=== PATIENT | male | born 1985 | race Caucasian/White ===

== ENCOUNTER 2018-01-10 17:25 | Emergency (ER) | payer SELFPAY ==
[2018-01-10 17:27] VITALS: BP 147/84; PULSE 84; RESP 14; TEMP 37.1; O2SAT 97; BMI 20.6
--- NOTE | 2018-01-10 17:42 | NURSING ---
NO OLD EKGS
--- NOTE | 2018-01-10 17:48 | EKG12_ITS ---
Test Reason : CP, HAND CRAMP Blood Pressure : / mmHG Vent. Rate : 071 BPM Atrial Rate : 071 BPM P-R Int : 162 ms QRS Dur : 100 ms QT Int : 374 ms P-R-T Axes : 036 078 055 degrees QTc Int : 406 ms Normal sinus rhythm Normal ECG Confirmed by ELEANOR SALDANA, UMESH ([id number]), web editor ANNELIESE SIBLEY ([id number] on 01/12/2018 2:13:57 PM Referred By: PENNY/[place] Confirmed By:UMESH WEBSTER MD
--- NOTE | 2018-01-10 17:50 | RAD_ITS ---
STUDY: X-RAY CHEST REASON FOR EXAM: Male, 32 years old. Chest pain TECHNIQUE: Frontal and lateral views of the chest. COMPARISON: None. FINDINGS: The lungs are clear and expanded. There is no demonstrated pleural abnormality. Normal size heart. Normal mediastinum and darleen. Normal visualized pulmonary arteries. Normal visualized aortic arch and descending thoracic aorta. Normal visualized thoracic spine. Normal visualized ribs, clavicles, and shoulders. There is no demonstrated abnormality of the visualized soft tissue structures of the upper abdomen. RAD/Chest PA and Lateral IMPRESSION: Normal x-ray examination of the chest. Electronically Signed: Josse Jacobs MD at 19:52 EDT , Service support ,
[2018-01-10 18:01] LABS: Absolute Lymphocyte Count 2.38 X10^3/ul (0.83-4.51); Absolute Neutrophil Count 4.2 X10^3/uL (2.0-7.7); Basophil# 0.01 X10^3/uL; Basophil% 0.1 % (0-1); Eosinophils% 1.4 % (0-5); Hematocrit 44.1 % (40-54); Hemoglobin 14.3 g/dl (13.0-16.5); Lymphocyte # 2.38 X10^3/ul (4.0); Lymphocyte % 32.7 % (19-41); Mean Corp Hgb Conc 32.4 g/gl (32-36); Mean Corpuscular Hgb 28.4 pg (27.0-32.0); Mean Corpuscular Volume 87.7 fL (80-94); Mean Platelet Vol. 10.9 fl (6.2-12.0); Monocyte# 0.55 X10^3/uL; Monocyte% 7.6 % (0-10); Neutrophil # 4.23 X10^3/uL (2.7-7.7); Neutrophil % 58.1 % (47-70); Platelet Count 231 K/mm3 (150-450); RBC Distribution Width CV 12.8 % (11.6-14.6); RBC Distribution Width SD 41.4 fl (35.1-43.9); Red Blood Count 5.03 M/mm3 (4.6-6.2); White Blood Count 7.3 K/mm3 (4.4-11.0)
[2018-01-10 18:02] LABS: POSITIVE COUNT NO; POSITIVE DIFFERENTIAL NO; POSITIVE MORPHOLOGY NO
[2018-01-10 18:17] LABS: Anion Gap 6 (5-15); BUN 10 mg/dL (7-18); BUN/Creat Ratio 11.9 RATIO (10-20); Calcium,Total 8.9 mg/dL (8.5-10.1); Chloride 104 mmol/L (98-107); Creatinine, Serum 0.84 mg/dL (0.70-1.30); EST Glomerular Filtration Rate 112 mL/min (>60); Est Glom Filt Rate - Afr Amer 136 mL/min (>60); Glucose 87 mg/dL (74-106); Potassium 3.8 mmol/L (3.5-5.1); Sodium Level 138 mmol/L (136-145)
--- NOTE | 2018-01-10 18:21 | ED.VISSUMM ---
- ER Visit Summary Date of Service: 01/10/18 Chief Complaint: Chest pain History of Present Illness: The patient is a 32 M who states that since he was 18 years old he would wake with a chest pressure in the mornings. He states it feels like when he swung down to the bottom of the swimming pool and feel the pressure in her chest and then come up to the surface and take a breath. He is a longtime smoker recently decreased the amount that he is smoking but is now been increasing how much he is smoking up to a pack a day. He states he has been under a lot of stress at work and in his personal life. At times he feels his hands tingling. He initially describes the hands is hurting but I asked him to describe that he is describes a tingling. Suicidal homicidal ideation. Physical Examination: Afebrile vital signs are stable Gen: Well-nourished well-developed Head: Normocephalic atraumatic Eyes: Perrl EOMI ENT: TMs clear no rhinorrhea moist mucous membranes Neck: Supple no lymphadenopathy no JVD nontender CVS: Regular rate rhythm no murmurs normal S1-S2 Respiratory: No distress clear to auscultation bilaterally chest nontender Abdomen: Soft nontender nondistended normal bowel sounds no masses Back: Nontender Extremity: Nontender no edema Skin: Normal color no rash Neuro: alert orientated ?3 CN II-XII intact normal strength sensation reflexes gait cerebellar Psych: The patient appears anxious and has a flat affect. Denies suicidal homicidal ideation Test Results: X-ray showed normal mediastinal silhouette. EKG sinus at a rate of 71. Basic labs including troponin are negative. Emergency Department Course and Treatment: The patient most likely has anxiety. He will be placed on hydroxyzine. He needs to establish primary care for further care of his anxiety. Impression: 1. Chest pain 2. Anxiety This note was generated with [employer] dictation software. It may contain incorrect words, spelling, and punctuation that were not noted in review of the chart prior to signing ED Disposition - Plan for ED Patient: Disposition: Home or Assisted Living Chief Complaint: Chest Other Instructions: ED Stress React Prescriptions: Hydroxyzine HCl 25 mg PO TID PRN PRN #20 tab PRN Reason: Anxiety Referrals: Ángela Gama MD [STAFF PHYSICIAN] - (Call to arrange follow-up.)
[2018-01-10 18:47] VITALS: BP 120/85; PULSE 66; RESP 18; O2SAT 98
== END 2018-01-10 18:48 | disposition home or self-care (01) ==
PROVIDERS: Emergency Provider Emergency Medicine
DX: R07.9 Chest pain, unspecified (principal); F41.9 Anxiety disorder, unspecified; F17.200 Nicotine dependence, unspecified, uncomplicated
CPT/HCPCS: 71046; 80048; 84484; 85025; 93005; 99284; A4216

== ENCOUNTER 2018-06-01 11:27 | Emergency (ER) | payer OTHER, SELFPAY ==
[2018-06-01 11:28] VITALS: BP 122/71; PULSE 94; RESP 17; TEMP 37.1; O2SAT 95; BMI 20.7
--- NOTE | 2018-06-01 11:52 | ED.VISSUMM ---
- ER Visit Summary Date of Service: 06/01/18 Chief Complaint: Throat pain History of Present Illness: The patient is a 32 M with a sore throat for the last 2 days. Worse with eating, talking, and swallowing. Associated with sinus pressure and cold sweats. He was concerned for strep throat. No cough. No fevers. No pain with moving his neck. Physical Examination: Afebrile and vital signs unremarkable. Patient appears nontoxic and in no acute distress. Oropharynx is erythematous with no sign of exudate or swelling. Good range of motion of his neck. No lymphadenopathy. Heart regular. No respiratory distress. Skin appears normal. Test Results: None performed Emergency Department Course and Treatment: After discussion with the patient's, he would like to be treated for strep throat. He has a penicillin allergy and was treated with clindamycin. He also received a dose of Decadron. Patient may use [id number] remedies for his symptoms. Return to work tomorrow. Return to the ER for any new or worsening issues. Treatment Plan: As above Disposition: Discharge Impression: 1. Acute pharyngitis This note was generated with [employer] software. It may contain incorrect words, spelling, and punctuation that were not noted in review of the chart prior to signing ED Disposition - Plan for ED Patient: Chief Complaint: Sore Throat Referrals: Care Physician,No Primary [Primary Care Provider] -
--- NOTE | 2018-06-01 11:54 | ED.DEP ---
ED Disposition - Plan for ED Patient: Chief Complaint: Sore Throat Instructions: ED Pharyngitis Viral Prescriptions: Clindamycin [Cleocin] 300 mg PO TID 10 Days #60 cap Referrals: Care Physician,No Primary [Primary Care Provider] -
[2018-06-01] MEDS: Clindamycin HCl 150 MG Capsule 300 MG PO (11:55)
== END 2018-06-01 12:18 | disposition home or self-care (01) ==
PROVIDERS: Emergency Provider Emergency Medicine
DX: J02.9 Acute pharyngitis, unspecified (principal); Z72.0 Tobacco use
CPT/HCPCS: 99283

== ENCOUNTER 2018-08-01 00:01 | Emergency (ER) | payer MEDICAID, SELFPAY ==
[2018-08-01 00:02] VITALS: BP 121/72; PULSE 99; RESP 18; TEMP 38.4; O2SAT 97; BMI 21.6
--- NOTE | 2018-08-01 00:29 | RAD_ITS ---
STUDY: X-RAY CHEST REASON FOR EXAM: Male, 32 years old. Cough, generalized illness. TECHNIQUE: PA and lateral chest. COMPARISON: January 10, 2018. FINDINGS: The lungs are clear and expanded. There is no demonstrated pleural abnormality. Normal size heart. Normal mediastinum and darleen. Normal visualized pulmonary arteries. Normal visualized aortic arch and descending thoracic aorta. Normal visualized thoracic spine. Normal visualized ribs, clavicles, and shoulders. There is no demonstrated abnormality of the visualized soft tissue structures of the upper abdomen. RAD/Chest PA and Lateral IMPRESSION: Normal x-ray examination of the chest. Electronically Signed: Yvon Cabrera MD at 1:24 EST , Service support ,
--- NOTE | 2018-08-01 00:29 | ED.VISSUMM ---
- ER Visit Summary Date of Service: 08/01/18 Chief Complaint: [] Cough fever or flulike illness History of Present Illness: The patient is a 32 M cough intermittent fevers flulike illness for the last 4 days. Gradual onset. He has had nasal congestion. Not bring anything up. No flu shot. Feels weak. Positive sick contacts. State a couple days ago his temperature was 106. He has been using TheraFlu but has not taken anything since Wednesday. Physical Examination: [] Vital signs reviewed. Temperature 101. General: Well-nourished well-developed Head: Normocephalic atraumatic Eyes: Pupils equal round and reactive to light extraocular movements intact ENT: TMs clear no hemotympanum no trauma Neck: Nontender full range of motion Cardiovascular: Regular rate rhythm no murmurs normal S1-S2 Respiratory: No distress clear to auscultation bilaterally chest nontender Abdomen: Soft nontender nondistended normal bowel sounds no masses Back: Nontender no CVA tenderness Extremities: Nontender active range of motion ?4 extremities no trauma Skin: Normal color no trauma Neuro alert oriented cranial nerves II through XII intact normal strength sensation reflexes Test Results: [] Emergency Department Course and Treatment: [] Given IV fluids, Toradol, Tylenol. Chest x-ray obtained chest x-ray negative. At this time I think the patient has a flulike illness. Not a candidate for Tamiflu therefore I will not check a flu test. Instructed on symptomatic therapy. I do not feel he needs antibiotics. We will follow-up as an outpatient. Treatment Plan: [] Disposition: [] Impression: [] Influenza-like illness This note was generated with [employer] dictation software. It may contain incorrect words, spelling, and punctuation that were not noted in review of the chart prior to signing ED Disposition - Plan for ED Patient: Chief Complaint: General Illness Referrals: Care Physician,No Primary [Primary Care Provider] -
[2018-08-01] MEDS: Acetaminophen 500 MG Tablet 1000 MG PO (00:41)
[2018-08-01] MEDS: 0.9% Normal Saline 1,000 ML 1000 ML IV (00:41)
[2018-08-01] MEDS: Ketorolac 30 MG/ML Syringe IV (00:41)
--- NOTE | 2018-08-01 01:32 | ED.DEP ---
ED Disposition - Plan for ED Patient: Disposition: Home or Assisted Living Chief Complaint: General Illness Instructions: ED Flu Referrals: Care Physician,No Primary [Primary Care Provider] - Kurt Rodriguez DO [NON CLINICAL AFFILIATE] -
[2018-08-01 01:42] VITALS: BP 104/66; PULSE 87; RESP 16; O2SAT 92
== END 2018-08-01 01:45 | disposition home or self-care (01) ==
PROVIDERS: Emergency Provider Emergency Medicine
DX: J11.1 Influenza due to unidentified influenza virus with other respiratory manifestations (principal)
CPT/HCPCS: 71046; 96361; 96374; 99284; J7030

== ENCOUNTER 2019-09-16 16:09 | Emergency (ER) | payer MEDICAID, SELFPAY ==
[2019-09-16 16:10] VITALS: BP 111/71; PULSE 102; RESP 14; TEMP 36.8; O2SAT 96; BMI 25.4
--- NOTE | 2019-09-16 16:30 | RAD_ITS ---
STUDY: X-RAY CHEST REASON FOR EXAM: Male, 33 years old. COUGH TECHNIQUE: PA and lateral views of the chest. COMPARISON: 08/01/2018 FINDINGS: The lungs are clear and expanded. There is no demonstrated pleural abnormality. Normal size heart. Normal mediastinum and darleen. Normal visualized pulmonary arteries. Normal visualized aortic arch and descending thoracic aorta. Normal visualized thoracic spine. Normal visualized ribs, clavicles, and shoulders. There is no demonstrated abnormality of the visualized soft tissue structures of the upper abdomen. RAD/Chest PA and Lateral IMPRESSION: No acute pulmonary process Electronically Signed: Dean Ibrahim MD at 16:44 EST , Service support ,
--- NOTE | 2019-09-16 16:52 | ED.VIS.GEN ---
History of Present Illness Chief Complaint: Cough Informant: Patient Onset: Today Narrative: Patient presents the emergency department with a cough. He has been coughing for about 1 week. He is a smoker but states he is not smoking as much because of the cough. He has been having intermittent shortness of breath particularly upon waking from sleep. He reports subjective fever believes it broke as he got to the hospital. Minimal phlegm. Some rhinorrhea nor sore throat. He denies history of asthma or known lung conditions. Past Medical History - Allergies and Home Meds Allergies/Adverse Reactions: Allergies Penicillins Allergy (Verified 09/16/19 16:15) Anaphylaxis Latex, Natural Rubber Adverse Reaction (Verified 09/16/19 16:15) Rash Primary Care Physician: Care Physician,No Primary [Primary Care Provider] - Smoking Status: Current every day smoker Review of Systems General: Reports: Fever. Denies: Chills, Sweats Eyes: Denies: Visual changes - bilaterally, Diplopia ENT: Reports: Rhinorrhea. Denies: Sore throat Cardiovascular: Denies: Chest pain, Palpitations Respiratory: Reports: Cough, Sputum. Denies: Dyspnea, Dyspnea on exertion Gastrointestinal: Denies: Abdominal pain, Nausea, Vomiting, Diarrhea, Melena, Hematochezia Genitourinary: Denies: Dysuria, Hematuria, Frequency Musculoskeletal: Denies: Back pain, Extremity Pain Skin: Denies: Rash, Wounds Neurological: Denies: Headache, Weakness, Numbness Physical Exam Vital Signs/Narrative: Vital Signs Temp Pulse Resp BP Pulse Ox 09/16/19 16:10 98.3 F 102 H 14 111/71 96 Inital Vital Signs reviewed: Yes General: Well nourished, Well developed, No Acute Distress Head: Normocephalic, Atraumatic Eyes: Perrl, EOMI ENT: Moist mucous membranes, Nasal congestion Neck: Supple, Nontender Cardiovascular: Regular rate, Regular rhythm, No murmurs Respiratory: No distress, CTA bilaterally, Chest nontender Abdomen: Soft, Nontender, Nondistended, Normal bowel sounds Back: Nontender, Normal Inspection Extremities: Nontender, No edema Skin: Normal color, No rash Neurological: Alert, Oriented x3, Cranial nerves II-XII grossly intact, Normal Strength, Normal Sensation Psychological: Normal affect, Normal Mood Diagnostic/Tx/Re-eval Chest X-Ray - ED: 2 View, Read by ED Physician, Read by Radiologist No obvious infiltrate on chest x-ray - Medical Decision Making Chest x-ray is negative. I will write for the patient to albuterol MDI. At this point this is most likely a viral illness. Follow-up with primary care ED Disposition - Plan for ED Patient: Disposition: Home or Assisted Living Instructions: BRONCHITIS, No Antibiotic (Adult) Prescriptions: Albuterol Inhaler [Ventolin Hfa] 2 puff INHALATION Q4H PRN PRN #1 inhaler PRN Reason: Wheezing Prescription Printed Referrals: Rafael Morales MD [STAFF PHYSICIAN] - As Needed
== END 2019-09-16 17:05 | disposition home or self-care (01) ==
PROVIDERS: Emergency Provider Emergency Medicine
DX: R05 Cough (principal); F17.200 Nicotine dependence, unspecified, uncomplicated
CPT/HCPCS: 71046; 99282

== ENCOUNTER 2019-10-28 16:31 | Emergency (ER) | payer MEDICAID, SELFPAY ==
[2019-10-28 16:31] VITALS: BP 119/70; PULSE 92; RESP 16; TEMP 37; O2SAT 97; BMI 23.8
--- NOTE | 2019-10-28 17:25 | ED.VIS.GEN ---
History of Present Illness Chief Complaint: Dental Informant: Patient Onset: - - Chronic, worsened over the past several days Current Severity: Moderate Maximum Severity: Moderate Narrative: Patient presents with chronic dental pain. He states he knows he has multiple dental cavities and broken teeth. He will get flares of pain from time to time. Over the past 3 days this is worsened again. Patient does not remember the last time he was on an antibiotic. - Past Medical History (1) Anxiety Status: Chronic Past Medical History - Allergies and Home Meds Allergies/Adverse Reactions: Allergies Penicillins Allergy (Verified 10/28/19 16:35) Anaphylaxis Latex, Natural Rubber Adverse Reaction (Verified 10/28/19 16:35) Rash Primary Care Physician: Care Physician,No Primary [Primary Care Provider] - Lives: With Family Smoking Status: Current every day smoker Review of Systems General: Denies: Chills, Fever Eyes: Denies: Visual changes - bilaterally ENT: Reports: - - Right-sided dental pain. Denies: Bilateral ear pain Cardiovascular: Denies: Chest pain Respiratory: Denies: Dyspnea, Cough Gastrointestinal: Denies: Abdominal pain, Nausea, Vomiting, Diarrhea Genitourinary: Denies: Dysuria Skin: Denies: Rash Neurological: Denies: Headache Allergy: Denies: Uticaria Physical Exam Vital Signs/Narrative: Vital Signs Temp Pulse Resp BP Pulse Ox 10/28/19 16:31 98.6 F 92 16 119/70 97 Inital Vital Signs reviewed: Yes General: Well nourished, Well developed Head: Normocephalic ENT: Moist mucous membranes, - - Multiple right-sided dental caries and dental decay. Right mandibular molar region has gum edema noted. No focal abscess amenable to drainage. No sign of Andrew's angina. Posterior pharynx examination is normal. Patient is a strong voice and is tolerating secretions well. Neck: Supple Cardiovascular: Regular rate, Regular rhythm Respiratory: No distress, CTA bilaterally Abdomen: Soft, Nontender Back: Nontender Extremities: Nontender Neurological: Alert, Oriented x3 Psychological: Normal affect Diagnostic/Tx/Re-eval - Medical Decision Making Patient does have a penicillin allergy and will be treated with a course of clindamycin. He will continue Tylenol or ibuprofen at home. He is concerned about not having prescription coverage and will be given a good Rx card to help with the cost of his medication. He is also given a dental clinic referral list. ED Disposition - Plan for ED Patient: Disposition: Home or Assisted Living Diagnosis: Dental infection Instructions: Dental Pain Prescriptions: Clindamycin [Cleocin] 300 mg PO 4X/DAY #80 cap Transmission Status: Pending to [id number] [place] Additional Instructions: Dental list provided
[2019-10-28 17:38] VITALS: RESP 15
== END 2019-10-28 17:38 | disposition home or self-care (01) ==
PROVIDERS: Emergency Provider Emergency Medicine
DX: K04.7 Periapical abscess without sinus (principal); Z72.0 Tobacco use
CPT/HCPCS: 99282